=== PATIENT | male | born 1940 ===

== ENCOUNTER 2018-03-31 07:23 | Outpatient (CLI) | payer OTHER ==
[~2018-03-31 07:23] MED LIST: [UNRECOGNIZED DRUG - OTHER]; [UNRECOGNIZED DRUG - REMARK]
== END 2018-03-31 08:34 | disposition home or self-care (01) ==
LOC: NUCLEAR 07:23
DX: I11.9 Hypertensive heart disease without heart failure (principal); I25.10 Atherosclerotic heart disease of native coronary artery without angina pectoris
CPT/HCPCS: 78452; 93017; A9500; J0153

== ENCOUNTER 2018-04-12 03:05 | Emergency (ER) | payer OTHER ==
[~2018-04-12] VITALS: Ht 170.2 cm; Wt 44.8 kg
== END 2018-04-12 11:59 | disposition home or self-care (01) ==
LOC: ER 03:05
DX: I48.91 Unspecified atrial fibrillation (principal); I10 Essential (primary) hypertension; E87.6 Hypokalemia

== ENCOUNTER 2018-07-22 13:20 | Emergency (ER) | payer OTHER ==
[~2018-07-22] VITALS: Ht 165.1 cm; Wt 81.6 kg
[2018-07-22] MEDS ORDERED: ISOSORBIDE DINI30 MG (14:50)
[2018-07-22] MEDS ORDERED: ZOCOR40 MG (14:50)
[2018-07-22] MEDS ORDERED: NEURONTIN800 MG (14:51)
[2018-07-22] MEDS ORDERED: ASA81 MG (14:51)
[2018-07-22] MEDS ORDERED: TOPROL XL100 M1 (14:51)
[2018-07-22] MEDS ORDERED: CLOPIDOGREL BIS75 MG (14:51)
[2018-07-22] MEDS ORDERED: CILOSTAZOL100 MG (14:52)
[2018-07-22] MEDS ORDERED: BIONECT (14:52)
== END 2018-07-22 19:48 | disposition home or self-care (01) ==
LOC: ER 13:20
DX: R10.813 Right lower quadrant abdominal tenderness (principal); R07.89 Other chest pain